=== PATIENT | female | born 1995 | race African-American/Black ===

== ENCOUNTER → 2016-10-17 02:28 | Emergency (ER) | payer OTHER ==
[~2016-10-17 02:28] MED LIST: Ibuprofen TAB* 600 MG PO ONE
[2016-10-17 03:14] LABS: Hematocrit 40 % (35-47); Hemoglobin 12.8 g/dl (12.0-16.0); Mean Corpuscular HGB Conc 32 g/dl (31-36); Mean Corpuscular Hemoglobin 27 pg (27-31); Mean Corpuscular Volume 83 fL (80-97); Mean Platelet Volume 8 um3 (7.4-10.4); Red Cell Distribution Width 14 % (10.5-15)
--- NOTE | 2016-10-17 03:19 | ED ---
Arsenio Saez SooYoung, scribed for Cristino Mcdonald MD on 10/17/16 at 0247 . Complex/Multi-Sys Presentation - HPI Summary HPI Summary: A 21 y/o F presents to ED with c/o LUE "pressure" onset approx one hour ago. Pt states she hasn't taken her medication properly today. She notes feeling sleepy this afternoon and having "feelings of dementia," but currently in ED, she is wide awake. She was hospitalized on 09/30/2016 at [facility] in [place] for a "manic episode" and stayed there for four days. Pert PMHx: bipolar disorder. - History Of Current Complaint Chief Complaint: EDGeneral Time Seen by Provider: 10/17/16 02:38 Hx Obtained From: Patient, Medical Records Onset/Duration: Still Present Timing: Constant Associated Signs And Symptoms: Positive: Recent Medication Changes - non- compliance, Other - pos: AMS; LUE "pressure" - Allergies/Home Medications Allergies/Adverse Reactions: Allergies Allergy/AdvReac Type Severity Reaction Status Date / Time No Known Allergies Allergy Verified 10/17/16 02:42 PMH/Surg Hx/FS Hx/Imm Hx Previously Healthy: No Opthamlomology History: Denies: Hx Legally Blind Psychiatric History: Reports: Hx Bipolar Disorder Infectious Disease History: Denies: Traveled Outside the [place] in Last 30 Days - Family History Known Family History: Positive: Other - pos: brother with depression; neg: suicides in family - Social History Occupation: Student Lives: Alone Substance Use Comment - Amount & Last Used: denies Review of Systems Negative: Fever Positive: Other - pos: LUE pressure Psychological: Other - pos: AMS All Other Systems Reviewed And Are Negative: Yes Physical Exam Triage Information Reviewed: Yes Vital Signs On Initial Exam: Initial Vitals Temp Pulse Resp BP Pulse Ox 98.1 F 89 18 115/76 100 10/17/16 02:38 10/17/16 02:38 10/17/16 02:38 10/17/16 02:38 10/17/16 02:38 Vital Signs Reviewed: Yes Appearance: Positive: Well-Appearing, No Pain Distress Skin: Positive: Warm Head/Face: Positive: Normal Head/Face Inspection ENT: Positive: Hearing grossly normal Neck: Positive: Supple Respiratory/Lung Sounds: Positive: Clear to Auscultation, Breath Sounds Present Cardiovascular: Positive: RRR Abdomen Description: Positive: Nontender, No Organomegaly, Soft Bowel Sounds: Positive: Present Musculoskeletal: Positive: Strength/ROM Intact Neurological: Positive: Sensory/Motor Intact, Alert, Oriented to Person Place, Time Psychiatric: Positive: Anxious Diagnostics - Vital Signs Vital Signs Temp Pulse Resp BP Pulse Ox 10/17/16 02:38 98.1 F 89 18 115/76 100 - Laboratory Result Diagrams: 10/17/16 03:00 10/17/16 03:00 Lab Statement: Any lab studies that have been ordered have been reviewed, and results considered in the medical decision making process. Re-Evaluation - Re-Evaluation First Eval Change: Improved - pt seen and cleared by crisis Complex Multi-Symp Course/Dx Course Of Treatment: Pt given Motrin in ED. Pt is medically cleared for MHE at 0342. - Diagnoses Provider Diagnoses: Anxiety Discharge - Discharge Plan Condition: Fair Disposition: HOME Referrals: [facility] [Primary Care Provider] - Additional Instructions: Per completion of a mental health evaluation, you are cleared for release and do not require inpatient psychiatric hospitalization at this time. Please go to nearest emergency room or call 911 if safety concerns arise or condition worsens. Follow up with [facility] as soon as possible Important Phone Numbers: [facility] ph:[phone] Su[facility] Prevention [facility] Crisis Services ph:[phone] National Suicide Prevention Lifeline ph:189-425-ANBJ ([phone]) [facility] ph:[phone] Alcoholics Anonymous ph:[phone] [facility] ph:[phone] [facility] ph:[phone] The documentation as recorded by the Arsenio alarcon SooYoung accurately reflects the service I personally performed and the decisions made by , Cristino Mcdonald MD.
[2016-10-17 03:23] LABS: ALT 12 U/L (7-52); AST 19 U/L (13-39); Albumin 4.9 g/dL (3.2-5.2); Alkaline Phosphatase 38 U/L (34-104); Anion Gap 12 mmol/L (2-11); BUN/Creatinine Ratio 23.4 (8-20); Blood Urea Nitrogen 18 mg/dL (6-24); CO2 Carbon Dioxide 23 mmol/L (22-32); Calcium 9.5 mg/dL (8.6-10.3); Chloride 102 mmol/L (101-111); EGFR African American 120.6 (>60); EGFR Non-African American 93.7 (>60); Globulin 2.9 g/dL (2-4); Glucose 89 mg/dL (70-100); Potassium 3.3 mmol/L (3.5-5.0); Sodium 137 mmol/L (133-145); Total Protein 7.8 g/dL (6.4-8.9)
[2016-10-17 03:40] LABS: Acetaminophen < 15 mcg/mL; Alcohol < 10 mg/dL (<10); Salicylate < 2.50 mg/dL (<30)
[2016-10-17 03:45] LABS: Benzodiazepine Urine Screen None Detected (None Detect)
[2016-10-17 03:49] LABS: Urine Bacteria Absent (Absent); Urine Bilirubin Negative (Negative); Urine Glucose Negative (Negative); Urine Nitrite Negative (Negative)
[2016-10-17 03:51] LABS: TSH (Thyroid Stimulating Horm) 3.77 mcIU/mL (0.34-5.60)
[2016-10-17 05:24] VITALS: BP 109/69
== END | disposition home or self-care (01) ==
LOC: ED 02:28
DX: F41.9 Anxiety disorder, unspecified (principal); F31.9 Bipolar disorder, unspecified
CPT/HCPCS: 36415; 80053; 80307; 80320; 80329; 81003; 81015; 84443; 84702; 85025; 87086; 99283; G0480